=== PATIENT | male | born 1970 | race Hispanic/Latino ===

== ENCOUNTER 2025-04-09 12:28 | Inpatient (IN) | payer SELFPAY ==
[~2025-04-09] VITALS: Ht 177.8 cm; Wt 96.6 kg
[2025-04-09 13:45] LABS: BASOPHILS % 0.3 % (0.0-1.0); EOSINOPHILS % 0.1 % (0.0-6.0); LYMPHOCYTES % 7.2 % (18.0-39.1); MONOCYTES % 9.2 % (4.4-11.3); NEUTROPHILS % 82.7 % (38.7-80.0); RED CELL DISTRIBUTION WIDTH 11.9 % (11.7-14.4)
[2025-04-09] MEDS: KETOROLAC TROMETHAMINE 30 MG/ML VIAL IV STA (13:53)
[2025-04-09] MEDS: CLINDAMYCIN 600MG / 50ML 50 ML IV ONE (13:54)
[2025-04-09] MEDS: ONDANSETRON HCL INJ 2MG/ML 2ML 2 MG/ML VIAL IV STA (13:54)
[2025-04-09 14:12] LABS: EST GLOMERULAR FILTRATION RATE 107.0 ML/MIN (>=60)
[2025-04-09] MEDS: LACTATED RINGER S IV ONE (14:23)
[2025-04-09 16:30] VITALS: PULSE 97; RESP 16; TEMP 98.6
[2025-04-09 16:42] VITALS: PULSE 74; RESP 20; O2SAT 98
[2025-04-09] MEDS ORDERED: LISINOPRIL5 MG PO (17:34)
[2025-04-09] MEDS ORDERED: METFORMIN HCL500 MG PO (17:34)
[2025-04-09 17:53] VITALS: BP 167/80; PULSE 93; RESP 20; TEMP 98.7; O2SAT 99
[2025-04-09] MEDS ORDERED: ONDANSETRON HCL INJ 2MG/ML 2ML 2 MG/ML VIAL IV PRN (19:00)
[2025-04-09] MEDS ORDERED: DEXTROSE 50% SYRINGE 50 ML IV PRN (19:15)
[2025-04-09] MEDS ORDERED: IOPAMIDOL 370 MG/ML 100 ML INFUS..BTL INJ ONE (19:46)
[2025-04-09 20:00] VITALS: BP 191/91; PULSE 106; RESP 18; TEMP 99.9; O2SAT 98
[2025-04-09] MEDS: KETOROLAC TROMETHAMINE 30 MG/ML VIAL IV ONE (20:48)
[2025-04-09] MEDS: HYDRALAZINE HCL 20 MG/ML VIAL IV PRN (20:49)
[2025-04-09] MEDS: INSULIN LISPRO 100 UNIT/1 ML 3ML VIAL SQ SCH (21:01)
[2025-04-09 21:05] VITALS: PULSE 76; RESP 18; O2SAT 98
[2025-04-09] MEDS: KETOROLAC TROMETHAMINE 30 MG/ML VIAL ONE (22:00)
[2025-04-09] MEDS: Vancomycin IV 1 GM in SODIUM CHLORIDE 0.9% 250ML 250 ML IV ONE (22:01)
[2025-04-09] MEDS ORDERED: POLYETHYLENE GLYCOL 3350 17 GM PACK PO PRN (22:15)
[2025-04-09] MEDS ORDERED: BISACODYL 10 MG SUPP PR PRN (22:15)
[2025-04-09] MEDS ORDERED: CLONIDINE HCL 0.1 MG TAB PO PRN (23:00)
[2025-04-10] VITALS (10 sets, daily range): BP systolic 146–174; BP diastolic 65–88; PULSE 85–108; RESP 16–19; TEMP 98.4–100.8; O2SAT 92–98
[2025-04-10] MEDS: Morphine 4mg INJECTION 4 MG/ML INJ IV PRN (04:29)
[2025-04-10 05:53] LABS: BASOPHILS % 0.2 % (0.0-1.0); EOSINOPHILS % 0.4 % (0.0-6.0); LYMPHOCYTES % 8.7 % (18.0-39.1); MONOCYTES % 12.3 % (4.4-11.3); NEUTROPHILS % 77.7 % (38.7-80.0); RED CELL DISTRIBUTION WIDTH 11.9 % (11.7-14.4)
[2025-04-10 06:32] LABS: EST GLOMERULAR FILTRATION RATE 111.0 ML/MIN (>=60)
[2025-04-10] MEDS: DOCUSATE SODIUM 100 MG CAP PO SCH (08:35)
[2025-04-10] MEDS: LISINOPRIL 20 MG TAB PO SCH (08:35)
[2025-04-10] MEDS: MAGNESIUM OXIDE 400 MG TAB PO ONE (10:02)
[2025-04-10] MEDS: POTASSIUM CHLORIDE 10MEQ EA PO ONE (10:02)
[2025-04-10] MEDS: NPH, HUMAN INSULIN ISOPHANE 100 UNIT/1 ML 3ML VIAL SQ SCH (10:11)
[2025-04-10] MEDS: ENOXAPARIN SOD INJ 40 MG/0.4 ML SYR SC SCH (17:13)
[2025-04-10] MEDS: Vancomycin IV 1 GM in SODIUM CHLORIDE 0.9% 250ML 250 ML IV SCH (21:51)
[2025-04-10] MEDS: ACETAMINOPHEN 325 MG TAB PO PRN (21:53)
[2025-04-11] VITALS (9 sets, daily range): BP systolic 128–171; BP diastolic 73–88; PULSE 81–106; RESP 16–18; TEMP 98–100.8; O2SAT 96–100
[2025-04-11 08:27] LABS: BASOPHILS % 0.4 % (0.0-1.0); EOSINOPHILS % 0.3 % (0.0-6.0); LYMPHOCYTES % 9.3 % (18.0-39.1); MONOCYTES % 10.7 % (4.4-11.3); NEUTROPHILS % 78.6 % (38.7-80.0); RED CELL DISTRIBUTION WIDTH 12.0 % (11.7-14.4)
[2025-04-11 09:11] LABS: EST GLOMERULAR FILTRATION RATE 109.0 ML/MIN (>=60)
[2025-04-11] MEDS: VANCOMYCIN 1.5 GM/300 ML (PEG) 300 ML IV SCH (09:12)
[2025-04-11 10:14] LABS: LYMPHOCYTES % (MANUAL) 7 % (19-48); MONOCYTES % (MANUAL) 4 % (3.4-9.0); NEUTROPHILS % (MANUAL) 89 % (40-74); PLATELET ESTIMATE ADEQUATE; PLATELET MORPHOLOGY COMMENT NORMAL; RBC MORPHOLOGY COMMENT NORMAL
[2025-04-11] MEDS ORDERED: FENTANYL CITRATE/PF 100MCG/2 ML INJ ONE (11:33)
[2025-04-11] MEDS ORDERED: LIDOCAINE HCL 2% LOCAL INJ 5 ML SDV VIAL INJ ONE (11:33)
[2025-04-11] MEDS ORDERED: MIDAZOLAM HCL 2 MG/2 ML VIAL ONE (11:33)
[2025-04-11] MEDS ORDERED: PROPOFOL IV EMULSION 10 MG/ML 20 ML VIAL ONE (11:33)
[2025-04-11] MEDS ORDERED: SEVOFLURANE INHAL SOLN 250 ML PEN BTL ONE (11:33)
[2025-04-11] MEDS ORDERED: HYDROMORPHONE 2MG/ML ONE (12:06)
[2025-04-11] MEDS ORDERED: ACETAMINOPHEN 1000 MG/100 ML 100 ML IV ONE (12:11)
[2025-04-11] MEDS ORDERED: FAMOTIDINE 20 MG/2 ML VIAL IV ONE (12:12)
[2025-04-11] MEDS ORDERED: ONDANSETRON HCL INJ 2MG/ML 2ML 2 MG/ML VIAL ONE (12:12)
[2025-04-11] MEDS: PIPERACILLIN/TAZOBACTAM 3.375 GM VIAL ONE (12:19)
[2025-04-11] MEDS: SODIUM CHLORIDE 0.9% 100 ML ONE (12:19)
[2025-04-12 00:03] VITALS: BP 166/82; PULSE 84; RESP 17; TEMP 99.2; O2SAT 96
[2025-04-12 04:00] VITALS: BP 156/86; PULSE 81; RESP 18; TEMP 98.4; O2SAT 98
[2025-04-12 07:22] LABS: BASOPHILS % 0.5 % (0.0-1.0); EOSINOPHILS % 1.1 % (0.0-6.0); LYMPHOCYTES % 16.8 % (18.0-39.1); MONOCYTES % 8.8 % (4.4-11.3); NEUTROPHILS % 72.0 % (38.7-80.0); RED CELL DISTRIBUTION WIDTH 12.0 % (11.7-14.4)
[2025-04-12 07:32] LABS: EST GLOMERULAR FILTRATION RATE 109.0 ML/MIN (>=60)
[2025-04-12 09:00] VITALS: BP 181/104; PULSE 77; RESP 18; TEMP 98.2; O2SAT 97
[2025-04-12] MEDS: SODIUM CHLORIDE 0.9% 250ML 250 ML ONE (12:55)
[2025-04-12 14:07] VITALS: BP 156/90; PULSE 74; RESP 18; TEMP 99.1; O2SAT 100
[2025-04-12] MEDS ORDERED: METFORMIN HCL1000 MG PO (14:11)
[2025-04-12] MEDS ORDERED: INSULIN SYRING SC (14:11)
[2025-04-12] MEDS ORDERED: ZESTRIL20 MG PO (14:11)
[2025-04-12] MEDS ORDERED: HUMULIN N100 UNITS/ SC (14:11)
[2025-04-12] MEDS ORDERED: KETOROLAC TROME10 MG PO (14:27)
[2025-04-12] MEDS ORDERED: DOXYCYCLINE HY100 MG PO (14:27)
[2025-04-12 17:00] VITALS: BP 144/90; PULSE 87; RESP 18; TEMP 98.2; O2SAT 100
== END 2025-04-12 18:00 | disposition home or self-care (01) | DRG 872 ==
LOC: ER 13:36 → ERHOLD 15:37 → MED/SURG2 17:06
PROVIDERS: ADMIT Internal Medicine; ATTEND Internal Medicine
PROC: 3E0333Z Introduction of Anti-inflammatory into Peripheral Vein, Percutaneous Approach (ICD-10-PCS; 2025-04-09)
PROC: 0J9G0ZZ Drainage of Right Lower Arm Subcutaneous Tissue and Fascia, Open Approach (ICD-10-PCS; principal; 2025-04-11 11:50)
DX: A41.9 Sepsis, unspecified organism (principal); L03.113 Cellulitis of right upper limb; E87.1 Hypo-osmolality and hyponatremia; L02.413 Cutaneous abscess of right upper limb; B95.61 Methicillin susceptible Staphylococcus aureus infection as the cause of diseases classified elsewhere; E11.65 Type 2 diabetes mellitus with hyperglycemia; I10 Essential (primary) hypertension; E78.2 Mixed hyperlipidemia; E66.811 Obesity, class 1; Z68.30 Body mass index [BMI] 30.0-30.9, adult; Z79.4 Long term (current) use of insulin; Z79.84 Long term (current) use of oral hypoglycemic drugs; F17.210 Nicotine dependence, cigarettes, uncomplicated
CPT/HCPCS: 36415; 73201; 80053; 80202; 82948; 83036; 83605; 83735; 85025; 87040; 87071; 87075; 87186; 87205; 93005; 94799; 99252; 99284; J0360; J1171; J1308; J1650; J1885; J2003; J2250; J2270; J2405; J2543; J7050; Q9967